=== PATIENT | female | born 1955 | race African-American/Black ===

== ENCOUNTER → 2025-03-24 | Day surgery (SDC) | payer MEDICARE, OTHER ==
[~2025-03-24] MED LIST: AMLODIPINE BESYL5 MG PO; ATORVASTATIN CA10 MG PO; B-121000 MC2; D3-5000125 MCG; ESCITALOPRAM OXA5 MG PO; FAMOTIDINE20 MG PO; LACTATED RINGER'S 1,000 ML ONE; LIDOCAINE HCL 2% LOCAL INJ 5 ML SDV VIAL INJ ONE; LINZESS145 MCG PO; LISINOPRIL20 MG PO; LORATADINE10 MG PO; MIDAZOLAM HCL 2 MG/2 ML VIAL ONE; MULTI-VITAMIN1 EACH PO; PROPOFOL IV EMULSION 10 MG/ML 20 ML VIAL ONE; SYMBICORT 16010.2 GM INH
[2025-03-24 13:17] LABS: BASOPHILS % 1.2 % (0.0-1.0); EOSINOPHILS % 4.1 % (0.0-6.0); LYMPHOCYTES % 31.9 % (18.0-39.1); MONOCYTES % 9.6 % (4.4-11.3); NEUTROPHILS % 53.0 % (38.7-80.0); RED CELL DISTRIBUTION WIDTH 15.0 % (11.7-14.4)
[2025-03-24 14:55] VITALS: TEMP 98.9
[2025-03-24 15:10] VITALS: BP 150/98; PULSE 76; RESP 16; O2SAT 98
== END | disposition home or self-care (01) ==
LOC: OR 12:24
PROVIDERS: ATTEND Internal Medicine Gastroenterology
DX: B37.81 Candidal esophagitis (principal); K21.00 Gastro-esophageal reflux disease with esophagitis, without bleeding; K29.50 Unspecified chronic gastritis without bleeding; I10 Essential (primary) hypertension; E78.00 Pure hypercholesterolemia, unspecified; J44.9 Chronic obstructive pulmonary disease, unspecified; F17.210 Nicotine dependence, cigarettes, uncomplicated; K59.09 Other constipation; F41.9 Anxiety disorder, unspecified; Z79.82 Long term (current) use of aspirin; Z79.51 Long term (current) use of inhaled steroids; Z79.899 Other long term (current) drug therapy; Z85.038 Personal history of other malignant neoplasm of large intestine; Z92.21 Personal history of antineoplastic chemotherapy; Z88.0 Allergy status to penicillin; Z01.810 Encounter for preprocedural cardiovascular examination; Z01.812 Encounter for preprocedural laboratory examination
CPT/HCPCS: 36415; 43239; 85025; 88112; 88305; 93005; J2003; J2250; J2704; J7121